=== PATIENT | male | born 1960 | race African-American/Black ===

== ENCOUNTER → 2019-01-10 | Outpatient (CLI) | payer OTHER ==
--- NOTE | 2019-01-10 13:21 | REP ---
Clinical: Chronic proteinuria. Technique: Real time sims scale ultrasound examination using curved array transducer. Findings: Bilateral kidneys are normal in size, echogenicity, and reniform shape without hydronephrosis, nephrolithiasis, cystic or renal mass lesion. Mild cortical contour lobulation is nonspecific and essentially normal finding. Right kidney measures 11.2 x 6.7 x 6.5 cm. Left kidney measures 11.7 x 6.5 x 6.7 cm. The bladder is grossly unremarkable and bilateral ureteral jets are noted. Electronically Signed by Deshawn Urena MD 01/10/2019 01:12 P
== END ==
LOC: M RAD 12:25
PROVIDERS: ATTEND Physician Assistant Medical
DX: R80.1 Persistent proteinuria, unspecified (principal)

== ENCOUNTER → 2021-09-08 | Outpatient (CLI) | payer OTHER | LOC: M WUC 13:05 | DX: M43.16 Spondylolisthesis, lumbar region (principal); M51.36 Other intervertebral disc degeneration, lumbar region; M51.37 Other intervertebral disc degeneration, lumbosacral region ==

== ENCOUNTER → 2022-04-05 | Outpatient (CLI) | payer BC ==
[2022-04-05 14:25] LABS: BLOOD UREA NITROGEN 20 MG/DL (9-23); CREATININE FOR GFR 1.03 MG/DL (0.70-1.30); GLOMERULAR FILTRATION RATE > 60.0 (>49)
[2022-04-05 14:27] LABS: FREE T4 1.03 NG/DL (0.89-1.76)
[2022-04-05 14:28] LABS: FREE T3 3.5 PG/ML (2.3-4.2); THYROID STIMULATING HORMONE 1.143 uIU/ML (0.55-4.78)
[2022-04-05 14:30] LABS: THYROID PEROXIDASE ANTIBODY 43 U/ML (<60.0)
== END ==
LOC: M PLALAB 11:00
PROVIDERS: ATTEND Ophthalmology Ophthalmic Plastic and Reconstructive Surgery
DX: E05.00 Thyrotoxicosis with diffuse goiter without thyrotoxic crisis or storm (principal); H05.243 Constant exophthalmos, bilateral

== ENCOUNTER → 2022-04-13 | Outpatient (CLI) | payer BC ==
[~2022-04-13] MED LIST: PROHANCE 279.3MG/ML 15ML VIAL ONE; PROHANCE 279.3MG/ML 5ML VIAL ONE
== END ==
LOC: M PLAIMG 12:12
PROVIDERS: ATTEND Ophthalmology Ophthalmic Plastic and Reconstructive Surgery
DX: E05.00 Thyrotoxicosis with diffuse goiter without thyrotoxic crisis or storm (principal); H05.243 Constant exophthalmos, bilateral
CPT/HCPCS: 70543; A9576